=== PATIENT | female | born 1980 | race Caucasian/White ===

== ENCOUNTER 2024-04-10 07:44 | Emergency (ER) | payer BC ==
[~2024-04-10] VITALS: Ht 160 cm; Wt 68.9 kg
[2024-04-10] MEDS: FAMOTIDINE 20 MG TAB PO ONE (08:17)
[2024-04-10] MEDS: MAALOX PLUS or MAALOX 30 ML PO ONE (08:17)
[2024-04-10 08:21] LABS: Basophils # (auto) 0.1 10 ^3/uL (0-0.2); Basophils % (auto) 1.4 % (0.0-2.0); Eosinophils # (auto) 0.1 10 ^3/uL (0-0.8); Hematocrit 41.9 % (36.0-46.0); Lymphocytes % (auto) 32.9 % (10.0-50.0); Mean Corpuscular Hemoglobin 30.1 pg (28.0-32.0); Mean Corpuscular Hgb Conc. 33.3 g/dL (32.0-36.0); Mean Corpuscular Volume 90.1 fL (80.0-100.0); Monocytes # (auto) 0.5 10 ^3/uL (0-1.3); Monocytes % (auto) 8.2 % (0.0-12.0); Neutrophils # (auto) 3.5 10 ^3/uL (1.6-8.6); Neutrophils % (auto) 56.5 % (37.0-80.0); Platelet Count (auto) 235 10^3/uL (140-450); Red Blood Cells 4.65 10^6/uL (4.0-5.20); Red Cell Distribution Width 12.6 % (11.8-14.3); White Blood Cell 6.2 10^3/uL (4.4-10.8)
[2024-04-10 08:57] LABS: Alanine Aminotransferase 30 U/L (7-40); Albumin 4.5 g/dL (3.2-4.8); Alkaline Phosphatase 41 U/L (46-116); Anion Gap 8 (5-15); Aspartate Aminotransferase 20 U/L (13-40); BUN/Creatinine Ratio 16.7 (10.0-20.0); Blood Urea Nitrogen 14 mg/dL (9-23); Calcium 9.5 mg/dL (8.7-10.4); Carbon Dioxide 24 mmol/L (20-30); Chloride 107 mmol/L (98-107); Glucose 112 mg/dL (74-106); Lipase 41 U/L (12-53); Sodium 139 mmol/L (136-145)
[2024-04-10 08:58] LABS: Bilirubin, Total 0.7 mg/dL (0.2-1.0)
[2024-04-10 08:59] LABS: Urine Bacteria None Seen /hpf (None Seen)
[2024-04-10 09:19] LABS: Urine Blood Negative /uL (Negative); Urine Clarity Clear (Clear); Urine Color Colorless (Yellow); Urine Protein, UAD Negative (Negative); Urine Specific Gravity 1.006 (1.001-1.035); Urine Urobilinogen Normal (Negative); Urine WBC <1 /hpf (0 - 5)
[2024-04-10 10:46] VITALS: BP 147/76; PULSE 90; RESP 17; TEMP 98.7; O2SAT 100
== END 2024-04-10 13:19 | disposition left against medical advice (07) ==
LOC: ER 07:44
DX: R20.2 Paresthesia of skin (principal); R55 Syncope and collapse; R53.1 Weakness
CPT/HCPCS: 36415; 70450; 71046; 80053; 81001; 81025; 83690; 84484; 85025; 93005